=== PATIENT | male | born 1990 | race African-American/Black ===

== ENCOUNTER 2019-09-19 20:51 | Inpatient (IN) ==
[2019-09-19] MEDS ORDERED: ceFAZolin 1,000 MG VIAL ONE ×2 (20:56→22:02)
[2019-09-19] MEDS ORDERED: SODIUM CHLORIDE 0.9% 100 ML IV ONE (20:57)
[2019-09-19] MEDS ORDERED: DIPH/TET/ACEL PERT BOOSTER VACCINE 0.5 ML VIAL IM ONE (20:58)
[2019-09-19 21:05] LABS: ABG Base Excess -17.2 MMOL/L (-2.5-2.5); ABG HCO3 11.6 MMOL/L (20-26); ABG Oxygen Saturation 99.8 % (95-100); ABG PH 7.287 (7.35-7.45); ABG TCO2 7.5 MMOL/L (23-27)
[2019-09-19 21:07] LABS: ABG PCO2 17.2 MM HG (35-48)
[2019-09-19] MEDS ORDERED: ETOMIDATE 20 MG/10 ML VIAL IV ONE (21:22)
[2019-09-19] MEDS ORDERED: ROCURONIUM 100 MG/10 ML VIAL IV ONE (21:23)
[2019-09-19] MEDS ORDERED: HEPARIN 5,000 UNIT/1 ML VIAL ONE (22:13)
[2019-09-19] MEDS ORDERED: DIPHTHERIA/TETANUS ADULT VACCINE 0.5 ML SYRINGE IM ONE (22:28)
[2019-09-19] MEDS ORDERED: PAPAVERINE 60 MG/2 ML VIAL ONE (22:38)
[2019-09-19 23:07] LABS: ABG HCO3 18.9 MMOL/L (20-26); ABG PCO2 39.6 MM HG (35-48); ABG PH 7.297 (7.35-7.45); ABG TCO2 20.1 MMOL/L (23-27); Glucose Heart Surgery 93 MG/DL (74-106); Hemoglobin Heart Surgery 9.6 G/DL (14.0-18.0); Potassium Heart/CVR 4.2 MMOL/L (3.5-5.1)
[2019-09-19 23:08] LABS: ABG PO2 513.6 MM HG (80-95)
[2019-09-19 23:25] LABS: Alanine Aminotransferase 29 U/L (16-61); Albumin 2.5 G/DL (3.4-5.0); Alkaline Phosphatase 39 U/L (45-117); Aspartate Amino Transferase 45 U/L (0-37); Bilirubin,Total < 0.39 MG/DL (0.2-1.0); Blood Urea Nitrogen 15 MG/DL (7-18); Calcium 8.5 MG/DL (8.5-10.1); Estimated Glom Filtration Rate 78 ML/MIN; Glucose 303 MG/DL (74-106); Osmolality,Calculated 294.1 MOS/KG (273-304)
[2019-09-19] MEDS ORDERED: SODIUM BICARBONATE 50 MEQ/50 ML VIAL IV ONE (23:39)
[2019-09-19 23:44] LABS: Basophils % 0.3 % (0.0-0.8); Eosinophils # 0.1 10*3/uL (0.0-0.87); Eosinophils % 1.6 % (0.00-10.9); Hemoglobin 10.5 GM/DL (14.0-18.0); Immature Granulocytes % 1.4 %; Immature Granulocytes Absolute 0.09 #; Lymphocytes # 4.6 10*3/uL (1.4-4.0); Lymphocytes % 73.3 % (21.2-54.2); Mean Corpuscular HGB Conc 29.1 GM/DL (32-36); Mean Corpuscular Volume 102.6 FL (87-102); Mean Platelet Volume 9.4 FL (9.6-12.0); Monocytes % 3.9 % (1.7-12.7); Neutrophils % 19.5 % (38.7-73.9); Platelet Count 109 T/CUMM (130-400); Red Blood Count 3.52 MC/CUMM (3.8-5.5); Red Cell Distribution Width 15.7 % (9.3-17.3); White Blood Count 6.3 T/CUMM (4-12)
[2019-09-19 23:51] LABS: INR 1.2; PT Patient Result 13.1 SECS (9.8-11.9); Partial Thromboplastin Time 31.9 SECS (23.9-33.8)
[2019-09-20] MEDS ORDERED: MIDAZOLAM 10 MG/2 ML VIAL ONE ×2 (00:04→00:56)
[2019-09-20 00:06] LABS: Hematocrit 35.3 VOL% (42.0-52.0)
[2019-09-20] MEDS ORDERED: ONDANSETRON 4 MG/2 ML VIAL IV PRN (00:32)
[2019-09-20] MEDS ORDERED: ACETAMINOPHEN 325 MG TABLET PO PRN (00:32)
[2019-09-20] MEDS ORDERED: SEVOFLURANE 1 UNIT/15 MINUTE INH ONE (00:55)
[2019-09-20] MEDS ORDERED: SODIUM BICARBONATE 50 MEQ/50 ML VIAL IV ONE (00:55)
[2019-09-20] MEDS ORDERED: CALCIUM CHLORIDE 1,000 MG/10 ML VIAL IV ONE (00:55)
[2019-09-20] MEDS ORDERED: fentaNYL 250 MCG/5 ML VIAL ONE (00:55)
[2019-09-20] MEDS ORDERED: PHENYLEPHRINE 10 MG/1 ML VIAL IV ONE (00:56)
[2019-09-20] MEDS ORDERED: SODIUM CHLORIDE 0.9% 2,000 ML IV ONE (00:56)
[2019-09-20] MEDS ORDERED: HEPARIN/NACL 0.9% 2 UNITS/ML 500 ML IV ONE (00:56)
[2019-09-20] MEDS ORDERED: ROCURONIUM 100 MG/10 ML VIAL IV ONE (00:56)
[2019-09-20] MEDS: LACTATED RINGERS 1,000 ML IV SCH ×3 (01:14→18:05)
[2019-09-20] MEDS: HYDROmorphone 2 MG/1 ML VIAL IV PRN ×7 (01:34→20:25)
[2019-09-20 02:24] LABS: ABG HCO3 26.2 MMOL/L (20-26); ABG Oxygen Saturation 99.8 % (95-100); ABG PH 7.477 (7.35-7.45); ABG TCO2 22.3 MMOL/L (23-27); Glucose Heart Surgery 175 MG/DL (74-106); Hematocrit Heart Surgery 35.1 PERCENT (42-52); Hemoglobin Heart Surgery 11.4 G/DL (14.0-18.0); Potassium Heart/CVR 2.9 MMOL/L (3.5-5.1)
[2019-09-20 03:08] LABS: Barbiturates Screen,Urine Negative (Negative); Benzodiazepines Screen,Urine Positive (Negative); Cannabinoid Screen,Urine Positive (Negative); Opiate Screen,Urine Negative (Negative); Phencyclidine Screen,Urine Negative (Negative)
[2019-09-20 03:22] LABS: Apearance,Urine CLEAR (Clear); Bilirubin,Urine Negative (Negative); Blood, Urine Large mg/dL (Negative); Glucose,Urine (UA) Negative (Negative); Ketones,Urine Negative (Negative); Nitrite,Urine Negative (Negative); Protein,Urine Negative; RBC,Urine 309 /HPF (0-4); Urine Color Colorless (Yellow); Urine Specific Gravity 1.008 (1.001-1.035); Urine Urobilinogen < 2.0 EU/DL (0.2-1.0)
[2019-09-20 03:27] LABS: Band Neutrophils 1 % (0-10); Lymphocytes 82 % (20-55); Segmented Neutrophils 15 % (50-85); Total Cells Counted 100
[2019-09-20 03:29] LABS: Anisocytosis 1+; Ovalocytes Few; Platelet Estimate Adequate
[2019-09-20] MEDS ORDERED: CALCIUM GLUCONATE 1,000 MG in SODIUM CHLORIDE 0.9% 100 ML IV ONE (04:00)
[2019-09-20] MEDS: POTASSIUM CHLORIDE RIDER 10 MEQ in PREMIX 1 EACH IV SCH ×4 (05:28→07:35)
[2019-09-20 05:32] LABS: Basophils % 0.1 % (0.0-0.8); Eosinophils % 0.1 % (0.00-10.9); Hematocrit 31.8 VOL% (42.0-52.0); Hemoglobin 10.8 GM/DL (14.0-18.0); Immature Granulocytes % 0.3 %; Immature Granulocytes Absolute 0.05 #; Lymphocytes # 2.2 10*3/uL (1.4-4.0); Lymphocytes % 15.2 % (21.2-54.2); Mean Corpuscular Volume 85.7 FL (87-102); Mean Platelet Volume 9.7 FL (9.6-12.0); Monocytes % 5.3 % (1.7-12.7); Platelet Count 143 T/CUMM (130-400); Red Blood Count 3.71 MC/CUMM (3.8-5.5); Red Cell Distribution Width 16.1 % (9.3-17.3); White Blood Count 14.3 T/CUMM (4-12)
[2019-09-20 05:37] LABS: Calcium 8.3 MG/DL (8.5-10.1); Osmolality,Calculated 286.1 MOS/KG (273-304)
[2019-09-20 06:12] LABS: Band Neutrophils 2 % (0-10); Lymphocytes 15 % (20-55); Segmented Neutrophils 82 % (50-85); Total Cells Counted 100
[2019-09-20 06:13] LABS: Hypochromasia 1+; Microcytosis Slight; Platelet Estimate Normal
[2019-09-20] MEDS ORDERED: PANTOPRAZOLE 40 MG TABLET PO SCH (09:00)
[2019-09-20] MEDS: PANTOPRAZOLE 40 MG VIAL IV SCH (09:45)
[2019-09-20] MEDS: ASPIRIN EC 325 MG TABLET PO SCH (13:05)
[2019-09-20] MEDS: LORazepam 2 MG/1 ML VIAL IV PRN (22:50)
[2019-09-21] MEDS: ENOXAPARIN 40 MG/0.4 ML SYRINGE SUBCUT SCH ×2 (01:20→21:06)
[2019-09-21] MEDS: LACTATED RINGERS 1,000 ML IV SCH ×2 (01:22→09:38)
[2019-09-21] MEDS: HYDROmorphone 2 MG/1 ML VIAL IV PRN (03:46)
[2019-09-21 04:15] LABS: ABG Base Excess 3.2 MMOL/L (-2.5-2.5); ABG HCO3 27.3 MMOL/L (20-26); ABG Oxygen Saturation 95.3 % (95-100); ABG PCO2 42.2 MM HG (35-48); ABG PH 7.428 (7.35-7.45); ABG PO2 71.7 MM HG (80-95); ABG TCO2 25.3 MMOL/L (23-27)
[2019-09-21 04:18] LABS: Basophils % 0.1 % (0.0-0.8); Eosinophils % 0.3 % (0.00-10.9); Hematocrit 23.8 VOL% (42.0-52.0); Hemoglobin 7.9 GM/DL (14.0-18.0); Immature Granulocytes % 0.4 %; Immature Granulocytes Absolute 0.03 #; Lymphocytes % 26.8 % (21.2-54.2); Mean Corpuscular HGB Conc 33.2 GM/DL (32-36); Mean Corpuscular Volume 88.1 FL (87-102); Mean Platelet Volume 9.5 FL (9.6-12.0); Monocytes % 7.7 % (1.7-12.7); Neutrophils % 64.7 % (38.7-73.9); Platelet Count 116 T/CUMM (130-400); Red Cell Distribution Width 16.5 % (9.3-17.3); White Blood Count 7.4 T/CUMM (4-12)
[2019-09-21 04:56] LABS: Osmolality,Calculated 274.5 MOS/KG (273-304)
[2019-09-21] MEDS ORDERED: MAGNESIUM SULF RIDER 4 GM in PREMIX 1 EACH IV ONE (09:30)
[2019-09-21] MEDS: ASPIRIN EC 325 MG TABLET PO SCH (09:38)
[2019-09-21] MEDS: PANTOPRAZOLE 40 MG VIAL IV SCH (09:39)
[2019-09-21] MEDS: LORazepam 2 MG/1 ML VIAL IV PRN (22:36)
[2019-09-22] MEDS: LACTATED RINGERS 1,000 ML IV SCH ×4 (02:48→21:28)
[2019-09-22 05:46] LABS: Basophils % 0.3 % (0.0-0.8); Eosinophils % 0.5 % (0.00-10.9); Hematocrit 23.6 VOL% (42.0-52.0); Hemoglobin 7.8 GM/DL (14.0-18.0); Immature Granulocytes % 0.2 %; Immature Granulocytes Absolute 0.01 #; Lymphocytes # 2.1 10*3/uL (1.4-4.0); Lymphocytes % 31.7 % (21.2-54.2); Mean Corpuscular HGB Conc 33.1 GM/DL (32-36); Mean Corpuscular Volume 89.1 FL (87-102); Mean Platelet Volume 9.7 FL (9.6-12.0); Monocytes % 9.6 % (1.7-12.7); Neutrophils % 57.7 % (38.7-73.9); Platelet Count 128 T/CUMM (130-400); Red Blood Count 2.65 MC/CUMM (3.8-5.5); Red Cell Distribution Width 15.9 % (9.3-17.3); White Blood Count 6.5 T/CUMM (4-12)
[2019-09-22 06:03] LABS: Calcium 8.5 MG/DL (8.5-10.1); Osmolality,Calculated 269.8 MOS/KG (273-304)
[2019-09-22] MEDS: ASPIRIN EC 325 MG TABLET PO SCH (08:21)
[2019-09-22] MEDS: PANTOPRAZOLE 40 MG VIAL IV SCH (08:21)
[2019-09-22] MEDS: LORazepam 2 MG/1 ML VIAL IV PRN (18:36)
[2019-09-22] MEDS: ENOXAPARIN 40 MG/0.4 ML SYRINGE SUBCUT SCH (21:29)
[2019-09-23] MEDS: LORazepam 2 MG/1 ML VIAL IV PRN (02:19)
[2019-09-23 04:58] LABS: Basophils % 0.2 % (0.0-0.8); Eosinophils # 0.1 10*3/uL (0.0-0.87); Eosinophils % 1.3 % (0.00-10.9); Hematocrit 23.3 VOL% (42.0-52.0); Hemoglobin 7.6 GM/DL (14.0-18.0); Immature Granulocytes % 0.4 %; Immature Granulocytes Absolute 0.02 #; Lymphocytes # 1.9 10*3/uL (1.4-4.0); Lymphocytes % 36.4 % (21.2-54.2); Mean Corpuscular HGB Conc 32.6 GM/DL (32-36); Mean Corpuscular Volume 90.3 FL (87-102); Mean Platelet Volume 9.2 FL (9.6-12.0); Monocytes % 8.5 % (1.7-12.7); Neutrophils % 53.2 % (38.7-73.9); Platelet Count 156 T/CUMM (130-400); Red Blood Count 2.58 MC/CUMM (3.8-5.5); Red Cell Distribution Width 15.2 % (9.3-17.3); White Blood Count 5.3 T/CUMM (4-12)
[2019-09-23] MEDS: LACTATED RINGERS 1,000 ML IV SCH (04:58)
[2019-09-23 05:13] LABS: Calcium 8.8 MG/DL (8.5-10.1); Osmolality,Calculated 268.1 MOS/KG (273-304)
[2019-09-23] MEDS: HYDROmorphone 2 MG/1 ML VIAL IV PRN (09:34)
[2019-09-23] MEDS: PANTOPRAZOLE 40 MG VIAL IV SCH (09:35)
[2019-09-23] MEDS: ASPIRIN EC 325 MG TABLET PO SCH (09:36)
[2019-09-23 12:06] VITALS: BP 119/67
== END 2019-09-23 12:55 | disposition home or self-care (01) | DRG 907 ==
LOC: EDBD → N.ED 20:51 → N.ICU 21:40 → N.EDINP 09-20 00:32 → N.ICU 09-20 00:54 → N.TELES 09-21 15:24
PROVIDERS: ADMIT Student in an Organized Health Care Education/Training Program; ATTEND Student in an Organized Health Care Education/Training Program

== ENCOUNTER 2020-09-29 07:41 | Observation (INO) ==
[2020-09-29] MEDS ORDERED: KETOROLAC 30 MG/1 ML VIAL IV STA (08:14)
[2020-09-29] MEDS ORDERED: SODIUM CHLORIDE 0.9% 1,000 ML IV STA (08:14)
[2020-09-29] MEDS ORDERED: HYDROmorphone 2 MG/1 ML VIAL IV STA (08:14)
[2020-09-29] MEDS ORDERED: ONDANSETRON 4 MG/2 ML VIAL IV STA (08:14)
[2020-09-29 08:56] LABS: Basophils % 0.1 % (0.0-0.8); Eosinophils % 0.5 % (0.00-10.9); Hematocrit 38.5 VOL% (42.0-52.0); Hemoglobin 13.3 GM/DL (14.0-18.0); Immature Granulocytes % 0.3 %; Immature Granulocytes Absolute 0.02 #; Lymphocytes # 1.5 10*3/uL (1.4-4.0); Lymphocytes % 19.7 % (21.2-54.2); Mean Corpuscular HGB Conc 34.5 GM/DL (32-36); Mean Corpuscular Volume 90.6 FL (87-102); Mean Platelet Volume 8.4 FL (9.6-12.0); Monocytes % 4.6 % (1.7-12.7); Neutrophils % 74.8 % (38.7-73.9); Platelet Count 244 T/CUMM (130-400); Red Blood Count 4.25 MC/CUMM (3.8-5.5); Red Cell Distribution Width 13.5 % (9.3-17.3); White Blood Count 7.6 T/CUMM (4-12)
[2020-09-29 09:14] LABS: Alanine Aminotransferase 17 U/L (16-61); Albumin 3.9 G/DL (3.4-5.0); Alkaline Phosphatase 30 U/L (45-117); Aspartate Amino Transferase 14 U/L (0-37); Bilirubin,Total < 0.39 MG/DL (0.20-1.00); Blood Urea Nitrogen 15 MG/DL (7-18); Calcium 9.2 MG/DL (8.5-10.1); Carbon Dioxide 25 MMOL/L (21-32); Estimated Glom Filtration Rate 153 ML/MIN; Glucose 92 MG/DL (74-106); Osmolality,Calculated 268.2 MOS/KG (273-304); Potassium 3.8 MMOL/L (3.5-5.1); Sodium 134 MMOL/L (136-145); Total Protein 7.5 G/DL (6.4-8.2)
[2020-09-29] MEDS ORDERED: GLUCAGON 1 MG VIAL IM PRN (10:39)
[2020-09-29] MEDS ORDERED: DEXTROSE 50% 25 GM/50 ML VIAL IV PRN (10:39)
[2020-09-29] MEDS ORDERED: ONDANSETRON 4 MG/2 ML VIAL IV PRN (10:39)
[2020-09-29] MEDS ORDERED: MORPHINE 2 MG/1 ML SYRINGE IV PRN (10:41)
[2020-09-29 10:53] LABS: Bilirubin,Urine Negative (Negative); Blood, Urine Negative (Negative); Glucose,Urine (UA) Negative (Negative); Ketones,Urine 20 mg/dL (Negative); Mucus,Urine Occasional /LPF (Occasional); Nitrite,Urine Negative (Negative); Protein,Urine Negative; RBC,Urine 3 /HPF (0-4); Squamous Epithelial Cell,Urine Occasional /HPF (0-10); Urine Appearance CLEAR (Clear); Urine Color Yellow (Yellow); Urine Specific Gravity > 1.060 (1.001-1.035); Urine Urobilinogen < 2.0 EU/DL (0.2-1.0)
[2020-09-29] MEDS ORDERED: ENOXAPARIN 40 MG/0.4 ML SYRINGE SUBCUT SCH (11:00)
[2020-09-29] MEDS: PANTOPRAZOLE 40 MG VIAL IV SCH ×2 (11:34→22:32)
[2020-09-29] MEDS: LACTATED RINGERS 1,000 ML IV SCH (11:36)
[2020-09-29] MEDS ORDERED: HYDROmorphone 2 MG/1 ML VIAL IV PRN (15:34)
[2020-09-29] MEDS ORDERED: KETOROLAC 15 MG/1 ML VIAL IV PRN (15:34)
[2020-09-29] MEDS ORDERED: ACETAMINOPHEN 325 MG TABLET PO PRN ×2 (15:35)
[2020-09-30] MEDS: LACTATED RINGERS 1,000 ML IV SCH (03:23)
[2020-09-30 05:35] LABS: Basophils % 0.2 % (0.0-0.8); Eosinophils # 0.1 10*3/uL (0.0-0.87); Hemoglobin 12.4 GM/DL (14.0-18.0); Immature Granulocytes % 0.2 %; Immature Granulocytes Absolute 0.01 #; Lymphocytes # 1.9 10*3/uL (1.4-4.0); Lymphocytes % 32.3 % (21.2-54.2); Mean Corpuscular HGB Conc 33.5 GM/DL (32-36); Mean Corpuscular Volume 91.4 FL (87-102); Mean Platelet Volume 8.6 FL (9.6-12.0); Monocytes % 7.4 % (1.7-12.7); Neutrophils % 58.9 % (38.7-73.9); Platelet Count 228 T/CUMM (130-400); Red Blood Count 4.05 MC/CUMM (3.8-5.5); Red Cell Distribution Width 13.3 % (9.3-17.3); White Blood Count 5.8 T/CUMM (4-12)
[2020-09-30 06:03] LABS: Calcium 8.6 MG/DL (8.5-10.1); Osmolality,Calculated 272.7 MOS/KG (273-304); Potassium 3.6 MMOL/L (3.5-5.1)
[2020-09-30 07:24] VITALS: BP 120/65
== END 2020-09-30 10:56 | disposition home or self-care (01) ==
LOC: N.ED 07:41 → N.EDINP 07:41 → N.3E 13:05
PROVIDERS: ADMIT Emergency Medicine; ATTEND Emergency Medicine